=== PATIENT | male | born 1990 | race Two or more races ===

== ENCOUNTER 2023-09-28 13:19 | Emergency (ER) | payer OTHER ==
[~2023-09-28] VITALS: Ht 182.9 cm; Wt 131.5 kg
== END 2023-09-28 15:04 | disposition home or self-care (01) ==
LOC: ER 13:19
DX: S61.221A Laceration with foreign body of left index finger without damage to nail, initial encounter (principal); W26.0XXA Contact with knife, initial encounter; Y93.89 Activity, other specified; Y92.018 Other place in single-family (private) house as the place of occurrence of the external cause